=== PATIENT | female | born 1935 | race Caucasian/White ===

== ENCOUNTER → 2024-03-29 11:17 | Outpatient (REF) | payer OTHER, SELFPAY | LOC: HWRAD 11:17 | PROVIDERS: ATTENDING PHYSICIAN Nurse Practitioner Family | DX: M54.50 Low back pain, unspecified (principal) | CPT/HCPCS: 72100 ==

== ENCOUNTER → 2025-02-17 09:18 | Outpatient (REF) | payer OTHER, SELFPAY | LOC: RST 09:18 | PROVIDERS: ATTENDING PHYSICIAN Internal Medicine | DX: R09.89 Other specified symptoms and signs involving the circulatory and respiratory systems (principal) | CPT/HCPCS: 74230; 92611 ==

== ENCOUNTER 2025-04-26 04:50 | Observation (INO) | payer OTHER, SELFPAY ==
[2025-04-25 21:34] VITALS: BP 168/89
[2025-04-25 21:52] LABS: Hematocrit 32.4 % (37.0-47.0); Hemoglobin 10.7 g/dL (12.0-16.0); Mean Corp Hgb Conc. 33.0 g/dL (33.0-37.0); Mean Corpuscular Volume 82.9 fL (81.0-99.0); Nucleated Red Blood Cells % 0 %; Platelet Count 278 10^3/uL (130-400); Red Cell Dist. Width 14.6 % (11.5-14.5)
[2025-04-25 22:07] LABS: ALT (SGPT) 14 U/L (0-35); AST (SGOT) 20 U/L (14-36); Albumin 4.1 g/dl (3.5-5.0); Alkaline Phosphatase 62 U/L (38-126); Blood Urea Nitrogen 34 mg/dl (7-17); Calcium 8.8 mg/dl (8.4-10.2); Carbon Dioxide 25 mmol/L (22-30); Glucose 103 mg/dl (70-99); Total Protein 6.7 g/dl (6.3-8.2); eGFR 53.85
[2025-04-25 22:21] LABS: Chloride 104 mmol/L (98-107); Potassium 4.5 mmol/L (3.5-5.1); Sodium 135 mmol/L (135-145)
[2025-04-26] VITALS (13 sets, daily range): BP systolic 162–190; BP diastolic 64–93; BMI 25.5
--- NOTE | 2025-04-26 03:28 | ED.GENMED ---
History of Present Illness
<Elaine Jackson PA-C - Last Filed: 04/26/25 07:50>
General
Chief Complaint: Rectal Bleeding
Source: patient
Exam Limitations: none
Time Seen by Provider: 04/26/25 02:34
Nursing documentation reviewed up to this point in time: agreed with
History of Present Illness
History of Present Illness:
89-year-old female with past medical history of diverticular bleeding, hypertension, hyperlipidemia, GERD, presents emergency department today with concerns of hematochezia for the past hours as well as horace rectal bleeding. Patient reports a
similar episode occurring a few years ago which at that time was attributed to a diverticular bleed. She has no associated abdominal pain. No rectal pain. No dysuria. No fevers or chills. No syncopal episodes. No lightheadedness or dizziness,
no chest pain or shortness of breath. She reports that this occurs every now and then and usually will resolve on its own but this time it lasted multiple hours.
Past History
<Elaine Jackson PA-C - Last Filed: 04/26/25 07:50>
Past History
ED Past Medical History: GERD, HTN, Hypercholesterolemia, Hyperthyroidism and Other (Lower GI bleed December 2017, DJD, sciatica on the left side)
ED Past Surgical History: Gynecological, Orthopedic (Left knee replacement May 2018) and Other (Colonoscopy January 2018)
Social History
Tobacco: Non-smoker
Alcohol: Occasional
Drug: None
Living: alone
Employment: Retired
Family History
Family History: Other (Noncontributory)
Review of Systems
<YUDELKA Lovelace Last Filed: 04/26/25 07:50>
Review of Systems
All Other Systems: ROS reviewed and negative except as documented in HPI and ROS
Phy Exam
<Elaine Jackson PA-C - Last Filed: 04/26/25 07:50>
Physical Exam
Physical Exam:
General: Patient is well appearing and in no acute distress; non-toxic
Skin: Warm and dry, no rashes or lesions
Head: Normocephalic, atraumatic
Eyes: Sclera non-icteric. EOMs intact.
Cardiac: Regular rate and rhythm, no murmurs
Pulm: Normal respiratory effort, no wheezes, rales, rhonchi
Abdomen: No abdominal tenderness to palpation
Genitourinary: External nonbleeding nonthrombosed hemorrhoid noted. Large volume maroon-colored heme positive stool noted.
Neuro: CN II-XII intact, no focal neurologic deficits.
Psychiatric: Appropriate mood and affect.
Course
<Elaine Jackson PA-C - Last Filed: 04/26/25 07:50>
Orders/Labs/Results
Orders:
Orders
04/25/25 21:43
Type+Screen Urgent
Complete Blood Count/With Diff Urgent
Comprehensive Metabolic Panel Urgent
04/26/25 03:53
0.9% Sodium Chloride 500 ml [Nss] 500 ml IV BOLUS
04/26/25 04:31
Admit/Transfer Patient As Directed
Co-Sign Provider:
Level of Care: Observation services
Assign to:: Telemetry
Physician / Group: Gilberto
Diagnosis: rectal bleed
Reason for Telemetry: Other
Other Reason for Telemetry: bleeding
Date to Stop Telemetry: 04/28/25
Time to Stop Telemetry: 11:00
Code Status As Directed
Resuscitation Status: Full Code
PRN Pain Medication Management As Directed
May give lesser potent ordered pain med per pt: Yes
preference::
Protocol:: Medication orders for pain may be administered in a
manner that supports deferring to patient preference
when the pt is:
- Requesting an ordered lesser potent pain medication.
Least to most potent pain medications are defined
as: acetaminophen < NSAID < tramadol < opioids
(morphine, oxycodone, hydromorphone).
- Requesting a lesser dose of the same medication IF
ORDERED.
- Requesting a less intrusive route of administration
if both routes are prescribed by the provider (PO <
IV).
04/28/25 11:00
DC Protocol for Telemetry ONCE
Abnormal Lab Results
04/25/25
21:43
RBC 3.91 L 10^6/uL
(4.20-5.40)
Hgb 10.7 L g/dL
(12.0-16.0)
Hct 32.4 L %
(37.0-47.0)
RDW 14.6 H %
(11.5-14.5)
Lymphocytes % 19.9 L %
(20.5-51.1)
BUN 34 H mg/dl
(7-17)
Glucose 103 H mg/dl
(70-99)
04/25/25 21:43
04/25/25 21:43
Vital Signs
Initial and Last Documented VS:
Initial Vital Signs
Temp Pulse Resp BP Pulse Ox
98.1 F 80 18 168/89 94
04/25/25 21:34 04/25/25 21:34 04/25/25 21:34 04/25/25 21:34 04/25/25 21:34
Last Documented Vital Signs
Temp Pulse Resp BP Pulse Ox
97.8 F 81 32 162/64 97
04/26/25 03:19 04/26/25 06:45 04/26/25 06:45 04/26/25 06:00 04/26/25 06:30
<Esthela Catherine DO - Last Filed: 04/26/25 04:41>
Orders/Labs/Results
Orders:
Orders
04/25/25 21:43
Type+Screen Urgent
Complete Blood Count/With Diff Urgent
Comprehensive Metabolic Panel Urgent
04/26/25 03:53
0.9% Sodium Chloride 500 ml [Nss] 500 ml IV BOLUS
04/26/25 04:31
Admit/Transfer Patient As Directed
Co-Sign Provider:
Level of Care: Observation services
Assign to:: Telemetry
Physician / Group: Gilberto
Diagnosis: rectal bleed
Reason for Telemetry: Other
Other Reason for Telemetry: bleeding
Date to Stop Telemetry: 04/28/25
Time to Stop Telemetry: 11:00
Code Status As Directed
Resuscitation Status: Full Code
PRN Pain Medication Management As Directed
May give lesser potent ordered pain med per pt: Yes
preference::
Protocol:: Medication orders for pain may be administered in a
manner that supports deferring to patient preference
when the pt is:
- Requesting an ordered lesser potent pain medication.
Least to most potent pain medications are defined
as: acetaminophen < NSAID < tramadol < opioids
(morphine, oxycodone, hydromorphone).
- Requesting a lesser dose of the same medication IF
ORDERED.
- Requesting a less intrusive route of administration
if both routes are prescribed by the provider (PO <
IV).
04/28/25 11:00
DC Protocol for Telemetry ONCE
Abnormal Lab Results
04/25/25
21:43
RBC 3.91 L 10^6/uL
(4.20-5.40)
Hgb 10.7 L g/dL
(12.0-16.0)
Hct 32.4 L %
(37.0-47.0)
RDW 14.6 H %
(11.5-14.5)
Lymphocytes % 19.9 L %
(20.5-51.1)
BUN 34 H mg/dl
(7-17)
Glucose 103 H mg/dl
(70-99)
04/25/25 21:43
04/25/25 21:43
Vital Signs
Initial and Last Documented VS:
Initial Vital Signs
Temp Pulse Resp BP Pulse Ox
98.1 F 80 18 168/89 94
04/25/25 21:34 04/25/25 21:34 04/25/25 21:34 04/25/25 21:34 04/25/25 21:34
Last Documented Vital Signs
Temp Pulse Resp BP Pulse Ox
97.8 F 81 32 162/64 97
04/26/25 03:19 04/26/25 06:45 04/26/25 06:45 04/26/25 06:00 04/26/25 06:30
<Elaine Jackson PA-C - Last Filed: 04/26/25 07:50>
MDM/Problems Addressed
Differential Diagnosis Includes:
Differentials include diverticular bleed, hemorrhoidal bleed, angiodysplasia, gastrointestinal malignancy, colon polyps, colitis
MDM/Problems Addressed:
89-year-old female with past medical history of diverticular bleeding, hypertension, hyperlipidemia, GERD, presents emergency department today with concerns of hematochezia for the past hours as well as horace rectal bleeding. No associated Cecilio
pain or syncopal episodes. No lightheadedness or dizziness on physical exam, she is well-appearing in no acute distress. Her vitals are stable. She has a large volume of maroon stool noted in rectal vault which is heme positive. Patient will
require admission for GI consult and trending of hemoglobins. Case reviewed with attending. Patient referred for admission
<Elaine Jackson PA-C - Last Filed: 04/26/25 07:50>
*Pulse Oximetry
SaO2: 98
Oxygen Mode of Delivery: Room air
Patient hypoxic: no
*Critical Care Note
Total Time (30-74mins, 75-104mins- exclusive of procedures): Not Applicable
ED Attending Note
<Elaine Jackson PA-C - Last Filed: 04/26/25 07:50>
-
Portions of this chart may have been created with voice recognition software.� Occasional wrong word or��sound alike� substitutions may have occurred due to the inherent limitations of voice recognition software.
<Esthela Catherine DO - Last Filed: 04/26/25 04:41>
ED Attending Note
Patient seen and examined by attending physician: Yes
I performed a history and physical exam of patient and discussed management with resident, I reviewed resident's note and agree with documented findings and plan of care.: Yes
ED Attending Note:
89-year-old woman with prior history of GI bleeds, hemorrhoidal bleeding as well as diverticular bleeds presents with bright red rectal bleeding/melanotic stools that began yesterday.
She takes no anticoagulants save for low-dose aspirin.
She denies abdominal pain, no dizziness nor lightheadedness. No chest pain or cough no shortness of breath.
89-year-old woman appears her stated age, awake and alert, pleasant, appears in no acute distress.
Abdomen is soft without appreciable tenderness. No palpable masses. Rectal exam per PA�maroon liquid stool heme positive.
Significant concern for recurrent lower GI bleed.
Hemoglobin 10.7
Patient remains hemodynamically stable and has had no melanotic stools since arrival to the ED. Therefore no need for CT angiogram of the abdomen and pelvis but will require acute hospitalization for close observation, continue to trend hemoglobin,
GI evaluation.
Discharge Plan
Departure
Patient Disposition: Admit
Date of Disposition: 04/26/25
Time of Disposition: 03:55
Admit to: Med/Surg
Presentation/result/management discussed w/ accepting MD/DO: Hospitalist
Patient with high blood pressure during this ER visit?: Yes
Condition: Fair
Discharge Problem:
Acute lower GI bleeding
Interventions
Interventions:
*Risk Screen - Suicide Last Done: 04/25/25 21:34
*General Assessment Last Done: 04/26/25 03:19
*Neglect/Abuse Screening Last Done: 04/26/25 03:19
*ED- Fall Risk Assessment Last Done: 04/26/25 03:19
*ED COVID-19 Vaccine History Last Done: 04/26/25 03:19
NC-Iykvvb-Qhzrbnlple Assessment Last Done: 04/26/25 03:19
ED- Cardiac Assessment Last Done: 04/26/25 03:19
ED- Pulmonary Assessment Last Done: 04/26/25 03:19
[2025-04-26] MEDS: NSS 500 IV (03:59)
--- NOTE | 2025-04-26 04:02 | HPS.HSE ---
Family Physician
-
Family Physician: Bruno Melendez
Chief Complaint
-
Rectal bleeding.
History of Present Illness
This is a 89-year-old with past medical history significant for prior history of hyperlipidemia, hypertension, hypothyroidism/Graves' disease presenting to the emergency department with episode of rectal bleeding.
Patient reported that in the afternoon she had a bowel movement that had blood mixed with stool. She stated was mostly bloody. There was no associated pain. There was no associated nausea or vomiting. She denies any recent episodes of
constipation. She denies any recent episodes of bloody bowel movement. She did say that she had a bowel bloody bowel movement a few months ago and was evaluated at the hospital but could not tell me which hospital think and it was told now.
However her last evaluation for GI bleed that does not appear to be several years ago. She had a GI bleed which that was evaluated here in 2020 where she had a significant drop in her hemoglobin and was found to have diverticulosis with no stigmata
are of new or ongoing bleeding on scope. Patient denies feeling dizzy or lightheaded. She denies having any melena or medic easier. She denies taking any blood thinners NSAIDs or aspirin.
She has not had a second bowel movement since that episode this afternoon. In the ED the rectal vault had maroon-colored stool that was heme positive.
Emergency Department she was afebrile, blood pressure was 167 pulse 80 oxygen saturation 98% on room air. Hemoglobin was 10.4 with normal WBC and platelet counts. Electrolytes BUN/creatinine were normal with a glucose of 103
Medical History
Past Medical History
Past Medical History: Reports HTN, Hypercholesterolemia and Hyperthyroidism (Graves' disease)
Past Surgical History: Reports Gynocological (Total abdominal hysterectomy, bladder sling) and Orthopedic (Left total knee arthroplasty, carpal tunnel surgery)
Social History
Tobacco: Non-smoker
Alcohol: None
Drug: None
Family History
Family History: Not pertinent
Allergies / Home Medications
Allergies reflects when Allergies were last updated in [employer].
Home Medications with original date entered in [employer]
Allergy/Medication List:
Allergies
Allergy/AdvReac Type Severity Reaction Status Date / Time
adhesive Allergy Rash Verified 11/14/21 21:43
lactose Allergy diarrhea Verified 11/14/21 21:43
latex Allergy Itching Verified 11/14/21 21:43
sulfite Allergy SNEEZING Verified 11/14/21 21:43
sulfur dioxide Allergy CLOGGED Verified 11/14/21 21:43
SINUS
Home Medications
ascorbic acid (vitamin C) 1,000 mg tablet (Vitamin C) 1,000 mg PO DAILY 01/04/18
atorvastatin 10 mg tablet 10 mg PO HS 01/04/18
cholecalciferol (vitamin D3) 50 mcg (2,000 unit) tablet 5,000 unit PO DAILY 01/04/18
methimazole 10 mg tablet 10 mg PO DAILY 08/20/18
cyanocobalamin (vitamin B-12) 1,000 mcg tablet 1,000 mcg PO DAILY 08/22/18
aspirin 81 mg chewable tablet 81 mg PO HS 02/05/21
multivitamin with folic acid 400 mcg tablet (Tab-A-Taye) 1 tab PO DAILY 02/05/21
triamterene 37.5 mg-hydrochlorothiazide 25 mg tablet 1 ea PO MOWEFR 02/05/21
Review of Systems
-
Constitutional: Reports No Symptoms
EENT: Reports No Symptoms
Respiratory: Reports No Symptoms
Cardiac: Reports No Symptoms
Abdomen/GI: Reports Bloody Stools
: Reports No Symptoms
Musculoskeletal: Reports No Symptoms
Skin: Reports No Symptoms
Neurological: Reports No Symptoms
Endocrine: Reports No Symptoms
Hematologic/Lymphatic: Reports No Symptoms
Psych: Reports No Symptoms
Physical Exam
Vital Signs
Vital Signs
Temp Pulse Resp BP Pulse Ox
97.8 F 80 18 168/77 98
04/26/25 03:19 09/15/25 21:34 04/25/25 21:34 04/26/25 03:14 04/26/25 03:28
Physical Exam
General: Well Developed, Well Nourished and No Apparent Distress
HEENT: NormoCephalic, Moist mucous membranes and Atraumatic
Respiratory: Clear
Cardiac: S1/S2 and Regular Rhythm; No Murmur or Rub
GI: Soft, Non Tender, Non Distended and Normal Bowel Sounds; No Organomegaly
Rectal: Hem Positive and Maroon Stools
Musculoskeletal: No Clubbing, No Cyanosis and No Edema
Skin: No Rash
Neuro: Nonfocal/grossly intact
Psych: Calm
Laboratory Results
-
04/25/25 21:43
04/25/25 21:43
Laboratory Results
Total Bilirubin 0.3 mg/dl (0.2-1.3) 04/25/25 21:43
AST 20 U/L (14-36) 04/25/25 21:43
ALT 14 U/L (0-35) 04/25/25 21:43
Alkaline Phosphatase 62 U/L (38-126) 04/25/25 21:43
Data Reviewed
-
Lab Data: Labs Reviewed by me
Old Records: Reviewed
Impression/Plan
-
IMPRESSION:
89-year-old with prior history of GI bleeding thought to be on the basis of diverticulosis who presents to the emergency department with bright red blood per rectum x 1 bowel movement. She has not had any abdominal pain diarrhea constipation. She
is unclear whether she has any known history of hemorrhoidal bleed. In the ED she was hemodynamically stable, hemoglobin appears stable at 10.7 but no recent priors available. She is not on any blood thinners and denies taking any NSAIDs or
aspirin.
PLAN:
GI bleed -suspect mostly lower GI bleed possibly diverticular or hemorrhoidal. No ongoing bleeding based on no subsequent bloody bowel movement since the afternoon yesterday. She is hemodynamically stable, hemoglobin is 10.7.
� Admit to telemetry observation
� Clear liquid diet for now
� Trend H&H
� Check orthostatic vital signs
� She has been typed and crossed
� Patient eager to return home, if no follow-up with department and patient has stable H&H, advance to regular diet and observe for a few hours and may be able to be DC'd
� GI consultation
Reviewed medications with patient but she only endorses taking vitamins. External pharmacy records indicated that she had been recently on methimazole and s/p Lupron but no other medications.
� Continue methimazole
� Continue escitalopram
� Check TSH
DVT prophylaxis SCD
CODE STATUS�full code
--- NOTE | 2025-04-26 10:11 | W.PN.HOSP.TC ---
Today's Communication/Plan
-
See plan
Assessment / Plan
Assessment / Plan
IMPRESSION:
89-year-old with prior history of GI bleeding thought to be on the basis of diverticulosis who presents to the emergency department with bright red blood per rectum x 1 bowel movement. She has not had any abdominal pain diarrhea constipation. She
is unclear whether she has any known history of hemorrhoidal bleed. In the ED she was hemodynamically stable, hemoglobin appears stable at 10.7 but no recent priors available. She is not on any blood thinners and denies taking any NSAIDs or
aspirin.
Acute gastrointestinal hemorrhage suspect lower source.
Presents with painless hematochezia.
Not on anticoagulation or antiplatelet medications prior to presentation
Similar presentation back in 2020 with lower gastrointestinal bleed at that time inpatient colonoscopy with diverticulosis throughout the colon without identified source.
Reports no upper GI symptoms.
Hemoglobin close to baseline.
Continue trending H&H.
Clear liquid diet
GI consultation. If continues bleeding may need endoscopic evaluation versus CTA
Reviewed medications with patient but she only endorses taking vitamins. External pharmacy records indicated that she had been recently on methimazole and s/p Lupron but no other medications.
� Continue methimazole
� Continue escitalopram
� Check TSH
DVT prophylaxis SCD
CODE STATUS�full code
Anticipated Discharge: 24 - 48 hours
Subjective/Interval History
-
Date of Service: April 26, 2025
Objective Data
-
Labs:
Laboratory Results
04/25/25
21:43
Sodium 135
Potassium 4.5
Chloride 104
Vital Signs:
Vital Signs
Temp Pulse Resp BP Pulse Ox
97.8 F 76 17 164/69 93
04/26/25 03:19 04/26/25 07:45 04/26/25 07:45 04/26/25 07:29 04/26/25 07:45
Physical Exam
-
General: Well Developed and No Apparent Distress
HEENT: Normocephalic, Atraumatic and Moist Mucous Membranes
Respiratory: Clear to Auscultation
Cardiac: Regular Rhythm and S1/S2; Negative Murmur, Rub or Gallop
GI: Soft, Nontender, Nondistended and Normal Bowel Sounds; Negative Organomegaly
Rectal: Deferred by Provider
Musculoskeletal: No Clubbing, No Cyanosis and No Edema
Skin: Negative Rash
Neuro: Nonfocal/Grossly Intact
--- NOTE | 2025-04-26 11:26 | CM ---
CM reviewed chart and met with pt bedside in ED. Lives alone in [place] apartment at [address]. Has elevator access.
Independent in ADLs, personal care and ambulation at baseline. Uses RW or cane when she needs to walk a distance.
Daughter and son live locally and provide support.
FOWLER reviewed and signed.
Confirms prescription coverage.
PCP: Bruno Melendez
Pharmacy: [facility]
Anticipate discharge home, no needs. CM will continue to follow for any discharge planning needs.
--- NOTE | 2025-04-26 11:52 | CON.GI ---
Addendum entered and electronically signed by Cristo Sol MD 04/26/25 17:57:
I saw and examined the patient.
The STEAM PLANT RECORDS CLERK or PA's note was reviewed and I agree with the note.
Comment: 89yo female presents with rectal bleeding yesterday, bright red blood, painless. She reports prior episodes of suspected diverticular bleeding in the past, last episode about 5 yrs ago. She had last colonoscopy as inpt in 2020 for rectal
bleeding that showed diverticulosis throughout the colon and two small polyps, nonadenomatous. Hgb 10.7 on admission. Repeat hgb 9.9.
REC:
Bleeding seems to be subsiding
If no further bleeding, resume diet
Probable diverticular bleed
I would hold off on colonoscopy at age 89 if this resolves uneventfully. Pt was in agreement
Original Note:
Consultation
-
Date/Time Consultation Requested: 04/26/25 1112
Date/Time Consultation Performed: 04/26/25 1150
Requesting Provider: Gilberto Samuel MD
Performing Provider: FERNANDO Correa, Cristo Sol MD
Reason for Consultation: rectal bleeding
Medical History
Chief Complaint / HPI
Chief Complaint: rectal bleeding
History of Present Illness:
Pt is a 89yo with hx GI bleeding in 2018 likely diverticular, benign colon polyp, HTN, hypercholesterolemia, hyperthyroidism, reflux esophagitis, basal celll CA, DONA, bladder sling, TKR with onset of rectal bleeding. In review with patient and
family, patient had bleeding in 2018 likely diverticular per notes. Over the years she has occasional small amount of red blood ? hemorrhoidal bleeding and also some stool frequency with use of Imodium. Initially Imodium every other day then
daily. She recently admits to forgetting to take her pills for 1 week and also consuming a large amount of peanut M+M. She began 04/25 with large volume of bright red blood per rectum. Per nursing staff only small amount noted today.
Pt otherwise admits to chronic dysphagia with recent speech evaluation and improved with slow eating and foods well chewed and chopped. She otherwise denies odynophagia, GERD, nausea, vomiting, dizziness, abdominal pain, constipation or black
stools. No anticoagulation prior to admission no NSAID use.
2020- colonoscopy morsbach diverticulosis 3-4 mm polyps rectum proximal transverse bx HP polyp,s lymphoid aggregate neg dysplasia
2017 colonoscopy - morsbach 4 mm polyp rectum, extensive diverticulosis bx benign mucosa no adenoma see
Past Medical History
Past Medical History: Cancer (basal cell CA), HTN, Hypercholesterolemia, Hyperthyroidism and Other (osteoporosis, reflux esophagitis )
Past Surgical History: Gynecological (DONA, bladder sling), Orthopedic (left TKR, carpel tunnel surgery ) and Other (cataract surgery )
Social History
Tobacco: Former Smoker (quit 30 + years ago )
Alcohol: Occasional (social )
Drug: None
Living: Alone
Employment: Retired
Family History
Family History: Other (no family hx colon Ca or polyps)
Allergies / Home Medications
Allergy/AdvReac Type Severity Reaction Status Date / Time
adhesive Allergy Rash Verified 11/14/21 21:43
lactose Allergy diarrhea Verified 11/14/21 21:43
latex Allergy Itching Verified 11/14/21 21:43
sulfite Allergy SNEEZING Verified 11/14/21 21:43
sulfur dioxide Allergy CLOGGED Verified 11/14/21 21:43
SINUS
�Medication �Instructions �Recorded
ascorbic acid (vitamin C) 1,000 mg 1,000 mg PO DAILY Supplement 01/04/18
tablet (Vitamin C)
cholecalciferol (vitamin D3) 50 5,000 unit PO DAILY Supplement 01/04/18
mcg (2,000 unit) tablet
cyanocobalamin (vitamin B-12) 1,000 mcg PO DAILY 08/22/18
1,000 mcg tablet
multivitamin with folic acid 400 1 tab PO DAILY Supplement 02/05/21
mcg tablet (Tab-A-Taye)
cetirizine 10 mg tablet 10 mg PO DAILY Allergies 04/26/25
escitalopram oxalate 5 mg tablet 5 mg PO DAILY Mental Health/Anxiety 04/26/25
loperamide 2 mg capsule 2 mg PO DAILY Loose Stools 04/26/25
methimazole 10 mg tablet 10 mg PO DAILY Thyroid 04/26/25
Review of Systems
-
History Source: Patient and Family
Constitutional: Reports No Symptoms
EENT: Reports No Symptoms
Respiratory: Reports No Symptoms
Cardiac: Reports No Symptoms
Abdomen/GI: Reports Abdominal Pain, Diarrhea (at time with use of imodium on regular basis ) and Bloody Stools
: Reports No Symptoms
Musculoskeletal: Reports No Symptoms
Skin: Reports No Symptoms
Neurological: Reports Weakness
Endocrine: Reports No Symptoms
Hematologic/Lymphatic: Reports Bleeding
Vital Signs
Temp Pulse Resp BP Pulse Ox
97.8 F 79 18 174/77 94
04/26/25 03:19 04/26/25 11:10 04/26/25 11:10 04/26/25 09:00 04/26/25 11:10
Physical Exam
Exam
General: Well Developed, Well Nourished and No Apparent Distress
HEENT: Normocephalic and Anicteric
Respiratory: Clear
Cardiac: Regular Rhythm
GI: Soft, Non Tender and Non Distended
Rectal: Hem Positive, Hemorrhoids and Other (dark stool with burgundy color on card-- no masses but limitation with stool in rectum )
Musculoskeletal: No Clubbing and No Cyanosis
Skin: Warm and Dry
Neuro: Awake, Alert and AO x 3
Psych: Calm
Results
WBC 6.4 10^3/uL (4.8-10.8) 04/25/25 21:43
Hgb 10.7 g/dL (12.0-16.0) L 04/25/25 21:43
Hct 32.4 % (37.0-47.0) L 04/25/25 21:43
MCV 82.9 fL (81.0-99.0) 04/25/25 21:43
Plt Count 278 10^3/uL (130-400) 04/25/25 21:43
Absolute Neuts (auto) 4.4 10^3/uL (1.4-6.5) 04/25/25 21:43
Sodium 135 mmol/L (135-145) 04/25/25 21:43
Potassium 4.5 mmol/L (3.5-5.1) 04/25/25 21:43
Chloride 104 mmol/L (98-107) 04/25/25 21:43
Carbon Dioxide 25 mmol/L (22-30) 04/25/25 21:43
BUN 34 mg/dl (7-17) H 04/25/25 21:43
Creatinine 1.0 mg/dL (0.6-1.0) 04/25/25 21:43
Calcium 8.8 mg/dl (8.4-10.2) 04/25/25 21:43
Total Bilirubin 0.3 mg/dl (0.2-1.3) 04/25/25 21:43
AST 20 U/L (14-36) 04/25/25 21:43
ALT 14 U/L (0-35) 04/25/25 21:43
Alkaline Phosphatase 62 U/L (38-126) 04/25/25 21:43
Diagnostic Image Results:
Prior GI Procedures:
2020- colonoscopy morsbach diverticulosis 3-4 mm polyps rectum proximal transverse bx HP polyp,s lymphoid aggregate neg dysplasia
2018 colonoscopy - morsbach 4 mm polyp rectum, extensive diverticulosis bx benign mucosa no adenoma see
Assessment / Plan
-
Pt is a 89yo with hx GI bleeding in 2018 likely diverticular, benign colon polyp, HTN, hypercholesterolemia, hyperthyroidism, reflux esophagitis, basal celll CA, DONA, bladder sling, TKR with onset of rectal bleeding. In review with patient and
family, patient had bleeding in 2018 likely diverticular per notes. Over the years she has occasional small amount of red blood ? hemorrhoidal bleeding and also some stool frequency with use of Imodium. Initially Imodium every other day then
daily. She recently admits to forgetting to take her pills for 1 week and also consuming a large amount of peanut M+M. She began 04/25 with large volume of bright red blood per rectum. Per nursing staff only small amount noted after admission on
04/26. . Pt otherwise admits to chronic dysphagia with recent speech evaluation and improved with slow eating and foods well chewed and chopped. She otherwise denies odynophagia, GERD, nausea, vomiting, dizziness, abdominal pain, constipation or
black stools. No anticoagulation prior to admission no NSAID use.
2020- colonoscopy morsbach diverticulosis 3-4 mm polyps rectum proximal transverse bx HP polyp,s lymphoid aggregate neg dysplasia
2017 colonoscopy - morsbach 4 mm polyp rectum, extensive diverticulosis bx benign mucosa no adenoma seen
-rectal bleeding
-anemia
-hx diverticular bleed 2017
-extensive diverticulosis per colonoscopy 2020
-loose stools at time with chronic Imodium use
-hx benign colon polyps
-dysphagia
other med problems:
-b12 deficiency
-hx reflux esophagitis
-HTN
-hyperlipidemia
-hyperthyroidism
-basal cell CA
-DONA
-bladder sling
-TKR
PLAN:
etiology of bleeding related to diverticular bleeding vs other-- some elevated BUN but stable BP and HR without dizziness to suggest UGI bleeding
per pt larger volume blood 04/25 then only smaller stools today
rectal with dark burgundy stool may be older blood
trend hbg and stool record
ok for clears
if continued bleeding if large volume consider CTA if creat allow vs colonoscopy
hold Imodium for now
monitor for dysphagia during admission - should stay upright for meals with food well chewed and chopped when diet advanced
family updated on plan
-
-
Thank you for consultation and allowing me to participate in the patient's care. Please call the hairspring fabrication supervisor GI physician during the after hours with any questions or concerns.
[2025-04-26] MEDS: TAPAZOLE 10 MG PO (13:14)
[2025-04-26] MEDS: ZYRTEC 10 MG PO (13:14)
[2025-04-26] MEDS: LEXAPRO 5 MG PO (13:14)
[2025-04-26 14:05] LABS: Hematocrit 30.6 % (37.0-47.0); Hemoglobin 9.9 g/dL (12.0-16.0)
[2025-04-26 22:36] LABS: Hematocrit 31.0 % (37.0-47.0); Hemoglobin 10.4 g/dL (12.0-16.0)
[2025-04-27 00:04] VITALS: BP 125/84
--- NOTE | 2025-04-27 02:40 | DOWNTIME ---
There was a [employer] Client Environmental Field Services Technician Downtime on 04/27/2025 from 0100 to 04/27/2025 at 0215. Downtime documentation of patient's care, including medication administrations, has been reconciled in the electronic record per guidelines. Refer to the
patient's paper chart under the miscellaneous tab to see printed paper medication records and downtime forms.
[2025-04-27 03:11] VITALS: BP 151/79
[2025-04-27 07:15] VITALS: BP 159/74
[2025-04-27] MEDS: LEXAPRO 5 MG PO (07:57)
[2025-04-27] MEDS: TAPAZOLE 10 MG PO (07:57)
[2025-04-27] MEDS: ZYRTEC 10 MG PO (07:57)
[2025-04-27] MEDS: THERAGRAN 1 TABLET PO (07:57)
[2025-04-27 08:13] LABS: Hematocrit 32.7 % (37.0-47.0); Hemoglobin 10.5 g/dL (12.0-16.0); Mean Corp Hgb Conc. 32.1 g/dL (33.0-37.0); Mean Corpuscular Volume 84.3 fL (81.0-99.0); Platelet Count 260 10^3/uL (130-400); Red Cell Dist. Width 14.6 % (11.5-14.5)
[2025-04-27 09:07] LABS: Iron 68 ug/dl (37-170)
[2025-04-27 09:16] LABS: Total Iron Binding Capacity 257 ug/dl (265-497)
[2025-04-27 09:37] LABS: Ferritin 47.8 ng/ml (11.1-264.0)
--- NOTE | 2025-04-27 10:53 | CM ---
patient seen at bedside with daughter Stacy
low residue diet
per hospitalist stable for dc today
offered vn/declines
PLAN: home, no needs
daughter or son to transport
[2025-04-27 11:05] VITALS: BP 144/79
--- NOTE | 2025-04-27 11:58 | W.PN.GI.CBS2 ---
Today's Communication / Plan
-
Likely diverticular bleed that has resolved
Hgb stable
Tolerating diet
OK for d/c
I would not repeat colonoscopy at age 89 for self limited bleeding
Will sign off
Assessment / Plan
-
Pt is a 89yo with hx GI bleeding in 2018 likely diverticular, benign colon polyp, HTN, hypercholesterolemia, hyperthyroidism, reflux esophagitis, basal celll CA, DONA, bladder sling, TKR with onset of rectal bleeding. In review with patient and
family, patient had bleeding in 2018 likely diverticular per notes. Over the years she has occasional small amount of red blood ? hemorrhoidal bleeding and also some stool frequency with use of Imodium. Initially Imodium every other day then
daily. She recently admits to forgetting to take her pills for 1 week and also consuming a large amount of peanut M+M. She began 04/25 with large volume of bright red blood per rectum. Per nursing staff only small amount noted after admission on
04/26. . Pt otherwise admits to chronic dysphagia with recent speech evaluation and improved with slow eating and foods well chewed and chopped. She otherwise denies odynophagia, GERD, nausea, vomiting, dizziness, abdominal pain, constipation or
black stools. No anticoagulation prior to admission no NSAID use.
2020- colonoscopy morsbach diverticulosis 3-4 mm polyps rectum proximal transverse bx HP polyp,s lymphoid aggregate neg dysplasia
2017 colonoscopy - morsbach 4 mm polyp rectum, extensive diverticulosis bx benign mucosa no adenoma seen
-rectal bleeding
-anemia
-hx diverticular bleed 2018
-extensive diverticulosis per colonoscopy 2020
-loose stools at time with chronic Imodium use
-hx benign colon polyps
-dysphagia
other med problems:
-b12 deficiency
-hx reflux esophagitis
-HTN
-hyperlipidemia
-hyperthyroidism
-basal cell CA
-DONA
-bladder sling
-TKR
Subjective
Subjective
Date of Service: April 27, 2025
No bleeding overnight. Eating low res diet now
Objective
Data Reviewed
Laboratory Data:
Laboratory Results
04/27/25 07:41
04/25/25 21:43
Laboratory Results
Total Bilirubin 0.3 mg/dl (0.2-1.3) 04/25/25 21:43
AST 20 U/L (14-36) 04/25/25 21:43
ALT 14 U/L (0-35) 04/25/25 21:43
Alkaline Phosphatase 62 U/L (38-126) 04/25/25 21:43
Vital Signs and I&O:
Vital Signs
Temp Pulse Resp BP Pulse Ox
97.8 F 90 17 144/79 97
04/27/25 11:05 04/27/25 11:05 04/27/25 11:05 04/27/25 11:05 04/27/25 11:05
Physical Exam
Physical Exam
GI: Soft, Non Distended and Non Tender
--- NOTE | 2025-04-27 13:40 | W.DS.TRANS ---
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
-
Discharge Instructions:
Discharge Diagnosis/Procedures Diverticualr bleed
Diet Low Residue
Instructions:
Stand-Alone Forms:
Changes to Home Medications: No
Discharge Medications:
DC Medications w/original date entered in [employer]
ascorbic acid (vitamin C) 1,000 mg tablet (Vitamin C) 1,000 mg PO DAILY Supplement 01/04/18
cholecalciferol (vitamin D3) 50 mcg (2,000 unit) tablet 5,000 unit PO DAILY Supplement 01/04/18
cyanocobalamin (vitamin B-12) 1,000 mcg tablet 1,000 mcg PO DAILY 08/22/18
multivitamin with folic acid 400 mcg tablet (Tab-A-Taye) 1 tab PO DAILY Supplement 02/05/21
cetirizine 10 mg tablet 10 mg PO DAILY Allergies 04/26/25
escitalopram oxalate 5 mg tablet 5 mg PO DAILY Mental Health/Anxiety 04/26/25
loperamide 2 mg capsule 2 mg PO DAILY Loose Stools 04/26/25
methimazole 10 mg tablet 10 mg PO DAILY Thyroid 04/26/25
Home Medication Changes
Pending Results: No
[2025-04-27 14:20] VITALS: BP 156/72
== END 2025-04-27 15:20 | disposition home or self-care (01) ==
LOC: 3 WEST ACU 04:50
PROVIDERS: Emergency Medicine; ADMITTING PHYSICIAN Internal Medicine; ATTENDING PHYSICIAN Internal Medicine; CONSULT PHYSICIAN Specialist; EMERGENCY PHYSICIAN Emergency Medicine; FAMILY PHYSICIAN Internal Medicine
DX: K57.31 Diverticulosis of large intestine without perforation or abscess with bleeding (principal); E78.00 Pure hypercholesterolemia, unspecified; I10 Essential (primary) hypertension; K21.00 Gastro-esophageal reflux disease with esophagitis, without bleeding; M81.0 Age-related osteoporosis without current pathological fracture; R13.10 Dysphagia, unspecified; Z87.891 Personal history of nicotine dependence; C44.91 Basal cell carcinoma of skin, unspecified; D64.9 Anemia, unspecified; E03.9 Hypothyroidism, unspecified; E05.00 Thyrotoxicosis with diffuse goiter without thyrotoxic crisis or storm; E53.8 Deficiency of other specified B group vitamins
CPT/HCPCS: 80053; 82728; 83540; 83550; 85014; 85018; 85025; 85027; 86850; 86900; 86901; 96360; 99285; G0378